=== PATIENT | female | born 1965 | race Caucasian/White ===

== ENCOUNTER 2016-08-25 09:45 | Observation (INO) | payer OTHER ==
[~2016-08-25] VITALS: Ht 162.6 cm; Wt 56.8 kg
--- NOTE | 2016-08-25 10:19 | DIAGNOSTIC IMAGING REPORT ---
PROCEDURE: XR CHEST 1 VIEW INDICATION: CHEST PAIN TECHNIQUE: Portable AP view 10:12 a.m. COMPARISON: None. FINDINGS: Lungs are clear. Heart and mediastinum are normal. Thorax is normal. IMPRESSION: 1. Negative chest.
--- NOTE | 2016-08-25 11:55 | ED NURSING NOTES ---
Clinical Report - Nurses [facility] [address] [place] [address] 08/25/2016 9:49 Patient: ANSELMO PIKE TRIAGE Triage time 09:45. Acuity: LEVEL 3. Chief Complaint: CHEST PAIN and (Chest pressure 6/10 in right upper chest and into her right arm, reproducible, nausaea, mild SOB is resolved. Onset of sx 0645 today.). SEPSIS SCREEN: Sepsis Screen. Negative (no infection suspected/documented). HOMER COMA SCORE: Homer Coma Scale: 15- eyes open spontaneously (4); best verbal response- oriented x 4 (5); best motor response- obeys commands (6). --10:02 Melivn Lynch R.N. 09:52 08/25/16. BP: 106/61 (regular adult cuff) taken on the left arm, while lying. HR: 58. RR: 16. O2 saturation: 98% on room air. Temp: 98.2 F (oral). Pain level now: 04/22. --10:02 Melvin Lynch R.N. Weight: 53.5 kg stated. Height/Length: 64 inches Per Patient. BMI: 20.3. --09:56 Melvin Lynch R.N. Medications Depakote Oral 1500MG, daily. --09:58 Melvin Lynch R.N. Lexapro Oral (Tablet 20 mg) 1 tablet, daily. --09:58 Melvin Lynch R.N. ClonazePAM Oral (Tablet 0.5 mg) 1 tablet, daily. --09:58 Melvin Lynch R.N. Percocet Oral. --09:59 Melvin Lynch R.N. Tramadol HCL Oral (Tablet 50 mg) 2 tablets, 2x a day. --09:59 Melvin Lynch R.N. Allergies No Known Drug Allergy. --09:59 Melvin Lynch R.N. History Arrived by private vehicle. Historian: patient. Accompanied by family. Treatment TRANSPORTATION LEAD: None. SOCIAL HX: Heavy tobacco smoker (cigarette)- less than 1 pack per day. Alcohol use. Patient is a recovering alcoholic. History of drug use: marijuana. (daily). ABUSE ASSESSMENT: No report of abuse. --10:02 Melvin Lynch R.N. PROBLEMS: Pain. Bipolar Disorder. --10:01 Melvin Lynch R.N. Concussion. --10:01 Melvin Lynch R.N. Alcoholic Seizures. --10:01 Melvin Lynch R.N. ADDITIONAL SURGERIES: Ankle ORIF. Spinal fusion L1. Tubal Ligation. --10:01 Melvin Lynch R.N. Interventions ID band on patient. To treatment room. --10:02 Melvin Lynch R.N. NURSING PROGRESS NOTES 10:08/25/2016 Site #1 started via IV in the right wrist with an 20g angiocath using a topical anesthetic, with aseptic technique and good blood return; one attempt. Blood drawn: rainbow set. Labeled in the presence of the patient and sent to the lab. Saline lock flushed with 10 mL saline. --10:[address] [facility] EKG time: (951). EKG was ordered, performed by a tech and shown to the ED physician. --10:10 Naseem Curiel, PAUL Tech1 10:17 08/25/2016 Aspirin PO Tablets 325 mg given. Allergies verified and confirmed 5 rights. --10:17 Ali 09:45 08/25/16. BP: 106/71. HR: 58. RR: 15. O2 saturation: 96%. --10:34 Ali 10:00 08/25/16. BP: 104/51. HR: 59. RR: 16. O2 saturation: 95%. --10:35 Ali 10:15 08/25/16. BP: 98/44. HR: 54. RR: 15. O2 saturation: 96%. --10:35 Ali 12:00 08/25/2016 Nitroglycerin SL Tablets 0.4 mg given. Allergies verified and confirmed 5 rights. (BP 103/49). --12:00 AliM 13:27 08/25/16. BP: 95/55 (regular adult cuff) taken on the left arm, while lying. HR: 50. RR: 15. O2 saturation: 94% on room air. Pain level now: 4/10. --13:50 AliM 11:00 08/25/16. BP: 93/41. HR: 55. RR: 13. O2 saturation: 94%. --13:57 AliM 11:30 08/25/16. BP: 102/49. HR: 55. RR: 13. O2 saturation: 95%. --13:57 AliM 12:00 08/25/16. BP: 95/42. HR: 62. RR: 14. O2 saturation: 95%. --13:58 AliM 12:30 08/25/16. BP: 98/54. HR: 54. RR: 15. O2 saturation: 93%. --13:59 AliM 13:00 08/25/16. BP: 101/49. HR: 51. RR: 14. O2 saturation: 94%. --13:59 AliM. DISPOSITION / DISCHARGE Report was given to a nurse via a phone call. Report included patient's care, treatment, medications, reviewed medication reconcilliation, and condition (including any recent changes or anticipated changes). All questions were answered. Report was acknowledged. (DAVID Suggs). --14:00 Melvin Lynch R.N. 14:01 08/25/2016 Site #[address] upon admission; patent, no pain and no signs of infection or infiltration. Good blood return present. Flushed with 10 mL saline; flushes easily. --14:01 Melvin Lynch R.N. Cardiac rhythm: sinus bradycardia. Departure time: 1410. Condition at departure: stable. Disposition: observation in Acute Care (212). Transported via stretcher by transport team with IV. Patient's personal items include, 1 bag with pt. --14:44 Melvin Lynch R.N. 14:02 08/25/16. BP: 100/38. HR: 50. RR: 20. O2 saturation: 94% on room air. Temp: 98.2 F (oral). Pain level now: 02/22. --14:44 Melvin Lynch R.N. Locked/Released at 08/25/2016 15:03 by Melvin Lynch R.N.
--- NOTE | 2016-08-25 11:55 | ED CLINICAL REPORT ---
Clinical Report - Physicians/Mid Levels [facility] [address] [place] [address] 08/25/2016 9:49 Patient: ANSELMO PIKE Time Seen: 09:56. Arrived- By private vehicle. Historian- patient. HISTORY OF PRESENT ILLNESS Chief Complaint: CHEST PAIN. At its maximum, severity described as 7 / 10. When seen in the E.D., severity described as 3 / 10. Modifying factors. Not worsened by anything. Not relieved by anything. This started today at about 6:45 AM and is still present. It was abrupt in onset and has been constant and waxing/waning. Onset during light activity. It is described as pressure and it is described as located in the right chest area and radiating to the upper back and to the right arm (with tingling in the R arm and hand). The patient has had mild difficulty breathing and nausea. No vomiting or diaphoresis. Similar symptoms previously: None. REVIEW OF SYSTEMS No calf pain, pedal edema, palpitations, abdominal pain or constipation. No diarrhea, vomiting or urinary problems. She has had a mild nonproductive cough (chronically). The patient is a smoker. She has had a stress test done many years ago. All systems otherwise negative, except as recorded above. PAST HISTORY borderline high cholesterol PCP - [facility]. Problems: Alcoholic Seizures. Concussion. Pain. Bipolar Disorder. Additional Surgeries: Ankle ORIF. Spinal fusion L1. Tubal Ligation. Medications: Tramadol HCL Oral (Tablet 50 mg) 2 tablets, 2x a day. Percocet Oral. ClonazePAM Oral (Tablet 0.5 mg) 1 tablet, daily. Lexapro Oral (Tablet 20 mg) 1 tablet, daily. Depakote Oral 1500MG, daily. Allergies: No Known Drug Allergy. SOCIAL HISTORY Current every day heavy tobacco smoker (cigarette)- less than 1 pack per day. Alcohol use. Last drink was 3 years ago. Patient is a recovering alcoholic. History of drug use: marijuana. Is a local resident. FAMILY HISTORY No history of aortic aneurysm or dissection. Hypertension in first-degree relative (mother); heart disease in first-degree relative (mother). ADDITIONAL NOTES The nursing notes have been reviewed. PHYSICAL EXAM Vital Signs: 08/25/2016 09:45 BP: 106/71. HR: 58. RR: 15. O2 saturation: 96%. Have been reviewed. Appearance: Alert. No acute distress. Eyes: Pupils equal, round and reactive to light. ENT: Pharynx normal. Neck: Neck supple. CVS: Normal heart rate and rhythm. Heart sounds normal. Respiratory: No respiratory distress. Breath sounds normal. Abdomen: Soft and nontender. Bowel sounds normal. No organomegaly. No mass. Back: Normal external inspection. No CVA tenderness. Skin: Skin warm and dry. Normal skin color. Normal skin turgor. Extremities: Extremities exhibit normal ROM. No calf tenderness. No lower extremity edema. LABS, X-RAYS, AND EKG EKG: No acute process. Rate: 56. Prior EKG unavailable. The study has been independently viewed by me. Chest X-ray: (IMPRESSION: 1. Negative chest.). The X-rays were interpreted by the radiologist and contemporaneously by me. Laboratory Tests: UA-Culture if indicated: (MICHELE: 08/25/2016 10:25) ( MsgRcvd 08/25/2016 10:51) Final results Test Result Flag Units (Reference) URINE COLOR YELLOW URINE APPEARANCE CLEAR URINE GLUCOSE NEGATIVE (NEGATIVE) URINE BILIRUBIN NEGATIVE (NEGATIVE) URINE KETONE NEGATIVE (NEGATIVE) URINE SPECIFIC GRAVITY 1.010 (1.010-1.030) URINE PH 7.0 (5.0-8.0) URINE PROTEIN NEGATIVE (NEGATIVE) URINE UROBILINOGEN 0.2 EU/dL (0.2-1.0) URINE NITRITE NEGATIVE (NEGATIVE) URINE BLOOD TRACE-INTACT (NEGATIVE) URINE LEUK ESTERASE NEGATIVE (NEGATIVE) URINE RBC 0-1 rbc/hpf (0-1) URINE WBC NONE SEEN wbc/hpf (0-1) URINE EPITHELIAL CELLS 0-1 EPI/hpf (0-5) URINE BACTERIA NONE SEEN (NONE SEEN) URINE COMMENT CULT NOT INDICATED 2+ AMORPHOUSURINE CULTURES ARE SET-UP BASED ON THE FOLLOWING CRITERIA:POSITIVE NITRITEPOSITIVE LEUKOCYTE ESTERASEGREATER THAN 10 WHITE BLOOD CELLSMODERATE (2+) OR GREATER BACTERIA Urine: (MICHELE: 08/25/2016 10:25) ( MsgRcvd 08/25/2016 10:38) Final results Test Result Flag Units (Reference) URINE NEGATIVE CBC w Diff: (MICHELE: 08/25/2016 09:57) ( [facility] 08/25/2016 10:12) Final results Test Result Flag Units (Reference) WHITE BLOOD COUNT 7.7 K/uL (4.5-11.5) RED BLOOD COUNT 3.92 L M/uL (4.00-5.20) HEMOGLOBIN 12.0 gm/dL (12.0-16.0) HEMATOCRIT 35.9 L % (36.0-46.0) MEAN CELL VOLUME 92 fL (80-100) MEAN CORPUSCULAR HGB 31 pg (26-34) MEAN CORPUSCULAR HGB CONC 33 g/dL (31-37) RED CELL DISTRIBUTION WIDTH 14.4 % (11.6-14.8) PLATELET COUNT 232 K/uL (150-400) NEUTROPHIL % 54.4 % (50-75) LYMPH % 33.4 % (25-40) MONO % 7.2 % (3-14) EOSINOPHIL % 4.6 H % (0-4) BASOPHIL % 0.4 % (0-2) PT with INR: (MICHELE: 08/25/2016 09:57) ( [facility] 08[facility]25[facility] 10[facility]26) Final results Test Result Flag Units (Reference) INR 0.9 (0.8-1.2) Low Intensity Therapy: INR 1.5-2.0 PT range 18.5-23.1Mod.Intensity Therapy: INR 2.0-3.0 PT range 23.1-31.5High Intensity Therapy: INR 2.5-3.5 PT range 27.4-35.5High Intensity Therapy 2: INR 3.0-4.0 PT range 31.5-39.3 APTT 28 SECONDS (24-34) D-DIMER QUANTITATIVE 0.27 ug/mLFEU (0.27-0.52) The primary value of this quantitative assay relates toits negative predictive value (i.e. exclusion) of pulmonaryembolism/deep vein thrombosis/DIC.Elevated levels of d-dimer may also occur with:, age, cancer, inflammation, liver disease,post-op, infection, hematoma, coronary disease, peripheralarteriopathy, bleeding disorders and thrombolytic treatment.Results should be correlated with other clinical andradiological data.Testing Methodology: Latex Immunoassay Urine Drug Screen: (MICHELE: 08/25/2016 10:25) ( [facility] 08/25/2016 11:44) Final results Test Result Flag Units (Reference) AMPHETAMINE/METHAMPHETAMINE NEGATIVE (NEGATIVE) BARBITURATE NEGATIVE (NEGATIVE) BENZODIAZEPINE NEGATIVE (NEGATIVE) CANNABINOID POSITIVE H (NEGATIVE) COCAINE NEGATIVE (NEGATIVE) ECSTASY NEGATIVE (NEGATIVE) METHADONE NEGATIVE (NEGATIVE) OPIATE NEGATIVE (NEGATIVE) The urine drug screen is a qualitative screening test fordrug overdose and abuse. All screen results should beconsidered as presumptive.Drugs screened for are as follows:BenzodiazepinesCocaineAmphetamines/MetamphetaminesTHC (Tetrahydrocannabinol)OpiatesBarbituratesEcstasyMethadonePositive results are unconfirmed. For confirmation, notifythe lab for the specimen to be sent to the reference lab.All confirmations must be performed by a differentmethodology.The ingestion of natural herbal and plant productscontaining Ephedra/Ephedra metabolites can produce in urineone or more substances capable of cross reacting withamphetamine/methamphetamine immunoassays. These testsprovide a preliminary result only. A more specificalternative chemical method must be used to obtain aconfirmed analytical result. Valproic Acid (Depakene): (MICHELE: 08/25/2016 10:57) ( [facility] 08/25/2016 11:42) Final results Test Result Flag Units (Reference) VALPROIC ACID (DEPAKENE) 68.5 ug/mL (50.0-150.0) BNP: (MICHELE: 08/25/2016 09:57) ( [facility] 08/25/2016 10:45) Final results Test Result Flag Units (Reference) B-TYPE NATRIURETIC PEPTIDE 44.3 pg/ml (5-100) CMP: (MICHELE: 08/25/2016 09:57) ( MsgRcvd 08/25/2016 10:31) Final results Test Result Flag Units (Reference) GLUCOSE 95 mg/dL (70-110) BUN 14 mg/dL (7-18) CREATININE 0.6 mg/dL (0.6-1.3) Estimated GFR >60 mL/min Estimated GFR- >60 mL/min Note: Persistent reduction over 3 months in eGFR<60 mL/min/1.73 m2 defines CKD. Patients with eGFR values>=60 mL/min/1.73 m2 may also have CKD if evidence ofpersistent proteinuria. Additional information may be foundat www.kidney.org. SODIUM 132 L mmol/L (136-145) POTASSIUM 4.0 mmol/L (3.5-5.1) CHLORIDE 101 mmol/L (98-107) CARBON DIOXIDE 31 mmol/L (21-32) CALCIUM 8.1 L mg/dL (8.5-10.1) TOTAL PROTEIN 5.9 L g/dL (6.4-8.2) ALBUMIN 3.3 g/dL (3.3-5.0) BILIRUBIN, TOTAL 0.2 mg/dL (0.0-1.0) ALKALINE PHOSPHATASE 67 U/L (46-116) AST (SGOT) 18 U/L (15-37) ALT (SGPT) 17 U/L (12-78) LIPASE 92 U/L (73-393) AMYLASE 73 U/L (25-115) CPK 81 U/L (24-260) TROPONIN I <0.05 ng/mL (0.00-1.5) TROPONIN REFERENCE RANGE:<0.1 NEGATIVE0.1-1.5 INDETERMINANT>1.5 POSITIVE . PROGRESS AND PROCEDURES Course of Care: Patient is stable. Discussed case with hospitalist, (Jose). Reviewed test results and need for additional work-up. Agreed upon treatment plan and decision to place in observation. Patient/family counseled. Old medical records ordered. Old records unavailable. Disposition: Admitted. Observation. CLINICAL IMPRESSION Chest pain. (Electronically signed by Simon Perez MD 08/25/2016 17:43)
--- NOTE | 2016-08-25 11:55 | ED ORDER SUMMARY ---
..... Patient: ANSELMO PIKE OrderSheet [facility] VisitID: [id number] [address] [place] [address] 50y, F Registration Date/Time: 08/25/2016 ORDER SHEET Weight: 53.5 kg (stated) Allergies: No Known Drug Allergy GENERAL ORDERS: Chest 1V Urgent (:08/25/2016 Conor JAEGER) (Ack 10:01 PWeiler ER Tech1) (10:10 PWeiler ER Tech1) Finish Cleaner (Continuous) (08/25/2016 Conor JAEGER) (10:05 JSimbeck R.N.) CBC w Diff Urgent (08/25/2016 Conor JAEGER) (Ack 10:01 PWeiler ER Tech1) (10:04 PWeiler ER Tech1) (10:06 JSimbeck R.N.) CMP Urgent (08/25/2016 Conor JAEGER) (Ack 10:01 Yuniorler ER Tech1) (10:04 PWeiler ER Tech1) (10:06 JSimbeck R.N.) UA-Culture if indicated Urgent (08/25/2016 Conor JAEGER) (Ack 10:01 MAGDAeihermilo ER Tech1) (11:55 JSimbeck R.N.) PT with INR Urgent (08/25/2016 Conor JAEGER) (Ack 10:01 PWeihermilo ER Tech1) (10:04 PWeiler ER Tech1) (10:06 JSimbeck R.N.) PTT Urgent (08/25/2016 Conor JAEGER) (Ack 10:01 Jh ER Tech1) (10:04 PWeiler ER Tech1) (10:06 JSimbeck R.N.) D-Dimer Urgent (08/25/2016 Conor JAEGER) (Ack 10:01 PWeihermilo ER Tech1) (10:04 PWeiler ER Tech1) (10:06 JSimbeck R.N.) Amylase Urgent (08/25/2016 Conor JAEGER) (Ack 10:01 MAGDAeihermilo ER Tech1) (10:04 PWeiler ER Tech1) (10:06 JSimbeck R.N.) Lipase Urgent (09:58 08/25/2016 Conor JAEGER) (Ack 10:01 PWeiler ER Tech1) (10:04 PWeiler ER Tech1) (10:06 JSimbeck R.N.) CPK Urgent (09:58 08/25/2016 Conor JAEGER) (Ack 10:01 MAGDAeihermilo ER Tech1) (10:04 PWeiler ER Tech1) (10:06 JSimbeck R.N.) Troponin-I Urgent (09:58 08/25/2016 Conor JAEGER) (Ack 10:01 MAGDAeihermilo ER Tech1) (10:04 PWeiler ER Tech1) (10:06 JSimbeck R.N.) Urine Urgent (:08/25/2016 Conor JAEGER) (Ack 10:01 Jh ER Tech1) (11:55 JSimbeck R.N.) BNP Urgent (09:08/25/2016 Conor JAEGER) (Ack 10:01 MAGDAeihermilo ER Tech1) (10:04 MAGDAeiler ER Tech1) (10:06 JSimbeck R.N.) Oxygen (2 L/min) (NC) (:58 08/25/2016 Conor JAEGER) (10:05 JSimbeck R.N.) Pulse oximeter (:08/25/2016 Conor JAEGER) (10:06 JSimbeck R.N.) EKG - ER Stat (:08/25/2016 Conor JAEGER) (Ack 10:01 Jh ER Tech1) (10:01 MAGDAeiler ER Tech1) Valproic Acid (Depakene) Urgent (11:16 08/25/2016 Conor JAEGER) (Ack 11:31 Jh ER Tech1) (11:42 PWgissel ER Tech1) Urine Drug Screen Urgent (11:16 08/25/2016 Conor JAEGER) (Ack 11:31 Jh MILLER Tech1) (11:55 JSimbeck R.N.) MEDICATION ORDERS: Aspirin PO 325 mg (NOW) (09:58 08/25/2016 Conor JAEGER) (10:17 AMcKenna) NitroGLYCERIN SL 0.4 mg (NOW, x3 PRN Chest Pain) (11:17 08/25/2016 Conor JAEGER) (12:00 [facility]) IV FLUIDS: IV Saline Lock (09:58 08/25/2016 Conor JAEGER) (10:13 [facility]) ORDER SHEET NOTES: [Electronically signed by Melvin Lynch R.N. (15:02 08/25/2016)] [Electronically signed by Simon Perez MD (17:43 08/25/2016)] [Electronically locked/signed by Melvin Lynch R.N. (15:02 08/25/2016)]
--- NOTE | 2016-08-25 11:55 | ED ORDER SUMMARY ---
..... Patient: ANSELMO PIKE OrderSheet [facility] VisitID: [id number] [address] [place] [address] 50y, F Registration Date/Time: 08/25/2016 ORDER SHEET Weight: 53.5 kg (stated) Allergies: No Known Drug Allergy GENERAL ORDERS: Chest 1V Urgent (:08/25/2016 Conor JAEGER) (Ack 10:01 PWeiler ER Tech1) (10:10 PWeiler ER Tech1) Medical Device Assembler (Continuous) (08/25/2016 Conor JAEGER) (10:05 JSimbeck R.N.) CBC w Diff Urgent (08/25/2016 Conor JAEGER) (Ack 10:01 PWeiler ER Tech1) (10:04 PWeiler ER Tech1) (10:06 JSimbeck R.N.) CMP Urgent (08/25/2016 Conor JAEGER) (Ack 10:01 Yuniorler ER Tech1) (10:04 PWeiler ER Tech1) (10:06 JSimbeck R.N.) UA-Culture if indicated Urgent (08/25/2016 Conor JAEGER) (Ack 10:01 MAGDAeihermilo ER Tech1) (11:55 JSimbeck R.N.) PT with INR Urgent (08/25/2016 Conor JAEGER) (Ack 10:01 PWeihermilo ER Tech1) (10:04 PWeiler ER Tech1) (10:06 JSimbeck R.N.) PTT Urgent (08/25/2016 Conor JAEGER) (Ack 10:01 Jh ER Tech1) (10:04 PWeiler ER Tech1) (10:06 JSimbeck R.N.) D-Dimer Urgent (08/25/2016 Conor JAEGER) (Ack 10:01 PWeihermilo ER Tech1) (10:04 PWeiler ER Tech1) (10:06 JSimbeck R.N.) Amylase Urgent (08/25/2016 Conor JAEGER) (Ack 10:01 MAGDAeihermilo ER Tech1) (10:04 PWeiler ER Tech1) (10:06 JSimbeck R.N.) Lipase Urgent (09:58 08/25/2016 Conor JAEGER) (Ack 10:01 PWeiler ER Tech1) (10:04 PWeiler ER Tech1) (10:06 JSimbeck R.N.) CPK Urgent (09:58 08/25/2016 Conor JAEGER) (Ack 10:01 MAGADeihermilo ER Tech1) (10:04 PWeiler ER Tech1) (10:06 JSimbeck R.N.) Troponin-I Urgent (09:58 08/25/2016 Conor JAEGER) (Ack 10:01 MAGDAeihermilo ER Tech1) (10:04 PWeiler ER Tech1) (10:06 JSimbeck R.N.) Urine Urgent (:08/25/2016 Conor JAEGER) (Ack 10:01 Jh ER Tech1) (11:55 JSimbeck R.N.) BNP Urgent (09:08/25/2016 Conor JAEGER) (Ack 10:01 MAGDAeihermilo ER Tech1) (10:04 MAGDAeiler ER Tech1) (10:06 JSimbeck R.N.) Oxygen (2 L/min) (NC) (:58 08/25/2016 Conor JAEGER) (10:05 JSimbeck R.N.) Pulse oximeter (:08/25/2016 Conor JAEGER) (10:06 JSimbeck R.N.) EKG - ER Stat (:08/25/2016 Conor JAEGER) (Ack 10:01 Jh ER Tech1) (10:01 MAGDAeiler ER Tech1) Valproic Acid (Depakene) Urgent (11:16 08/25/2016 Conor JAEGER) (Ack 11:31 Jh ER Tech1) (11:42 PWgissel ER Tech1) Urine Drug Screen Urgent (11:16 08/25/2016 Conor JAEGER) (Ack 11:31 Jh MILLER Tech1) (11:55 JSimbeck R.N.) MEDICATION ORDERS: Aspirin PO 325 mg (NOW) (09:58 08/25/2016 Conor JAEGER) (10:17 AMcKenna) NitroGLYCERIN SL 0.4 mg (NOW, x3 PRN Chest Pain) (11:17 08/25/2016 Conor JAEGER) (12:00 [facility]) IV FLUIDS: IV Saline Lock (09:58 08/25/2016 Conor JAEGER) (10:13 [facility]) ORDER SHEET NOTES: [Electronically signed by Melvin Lynch R.N. (15:02 08/25/2016)] [Electronically signed by Simon Perez MD (17:43 08/25/2016)] [Electronically locked/signed by Melvin Lynch R.N. (15:02 08/25/2016)]
--- NOTE | 2016-08-25 11:55 | ED NURSING NOTES ---
Clinical Report - Nurses [facility] [address] [place] [address] 08/25/2016 9:49 Patient: ANSELMO PIKE TRIAGE Triage time 09:45. Acuity: LEVEL 3. Chief Complaint: CHEST PAIN and (Chest pressure 6/10 in right upper chest and into her right arm, reproducible, nausaea, mild SOB is resolved. Onset of sx 0645 today.). SEPSIS SCREEN: Sepsis Screen. Negative (no infection suspected/documented). HOMER COMA SCORE: Homer Coma Scale: 15- eyes open spontaneously (4); best verbal response- oriented x 4 (5); best motor response- obeys commands (6). --10:02 Melvin Lynch R.N. 09:52 08/25/16. BP: 106/61 (regular adult cuff) taken on the left arm, while lying. HR: 58. RR: 16. O2 saturation: 98% on room air. Temp: 98.2 F (oral). Pain level now: 04/22. --10:02 Melvin Lynch R.N. Weight: 53.5 kg stated. Height/Length: 64 inches Per Patient. BMI: 20.3. --09:56 Melvin Lynch R.N. Medications Depakote Oral 1500MG, daily. --09:58 Melvin Lynch R.N. Lexapro Oral (Tablet 20 mg) 1 tablet, daily. --09:58 Melvin Lynch R.N. ClonazePAM Oral (Tablet 0.5 mg) 1 tablet, daily. --09:58 Melvin Lynch R.N. Percocet Oral. --09:59 Melvin Lynch R.N. Tramadol HCL Oral (Tablet 50 mg) 2 tablets, 2x a day. --09:59 Melvin Lynch R.N. Allergies No Known Drug Allergy. --09:59 Melvin Lynch R.N. History Arrived by private vehicle. Historian: patient. Accompanied by family. 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 SOCIAL HX: Heavy tobacco smoker (cigarette)- less than 1 pack per day. Alcohol use. Patient is a recovering alcoholic. History of drug use: marijuana. (daily). ABUSE ASSESSMENT: No report of abuse. --10:02 Melvin Lynch R.N. PROBLEMS: Pain. Bipolar Disorder. --10:01 Melvin Lynch R.N. Concussion. --10:01 Melvin Lynch R.N. Alcoholic Seizures. --10:01 Melvin Lynch R.N. ADDITIONAL SURGERIES: Ankle ORIF. Spinal fusion L1. Tubal Ligation. --10:01 Melvin Lynch R.N. Interventions ID band on patient. To treatment room. --10:02 Melvin Lynch R.N. NURSING PROGRESS NOTES 10:08/25/2016 Site #1 started via IV in the right wrist with an 20g angiocath using a topical anesthetic, with aseptic technique and good blood return; one attempt. Blood drawn: rainbow set. Labeled in the presence of the patient and sent to the lab. Saline lock flushed with 10 mL saline. --10:08 [facility] EKG time: (951). EKG was ordered, performed by a tech and shown to the ED physician. --10:10 Naseem Curiel, PAUL Tech1 10:17 08/25/2016 Aspirin PO Tablets 325 mg given. Allergies verified and confirmed 5 rights. --10:17 Ali 09:45 08/25/16. BP: 106/71. HR: 58. RR: 15. O2 saturation: 96%. --10:34 Ali 10:00 08/25/16. BP: 104/51. HR: 59. RR: 16. O2 saturation: 95%. --10:35 Ali 10:15 08/25/16. BP: 98/44. HR: 54. RR: 15. O2 saturation: 96%. --10:35 Ali 12:00 08/25/2016 Nitroglycerin SL Tablets 0.4 mg given. Allergies verified and confirmed 5 rights. (BP 103/49). --12:00 AliM 13:27 08/25/16. BP: 95/55 (regular adult cuff) taken on the left arm, while lying. HR: 50. RR: 15. O2 saturation: 94% on room air. Pain level now: 4/10. --13:50 AliM 11:00 08/25/16. BP: 93/41. HR: 55. RR: 13. O2 saturation: 94%. --13:57 AliM 11:30 08/25/16. BP: 102/49. HR: 55. RR: 13. O2 saturation: 95%. --13:57 AliM 12:00 08/25/16. BP: 95/42. HR: 62. RR: 14. O2 saturation: 95%. --13:58 AliM 12:30 08/25/16. BP: 98/54. HR: 54. RR: 15. O2 saturation: 93%. --13:59 AliM 13:00 08/25/16. BP: 101/49. HR: 51. RR: 14. O2 saturation: 94%. --13:59 AliM. DISPOSITION / DISCHARGE Report was given to a nurse via a phone call. Report included patient's care, treatment, medications, reviewed medication reconcilliation, and condition (including any recent changes or anticipated changes). All questions were answered. Report was acknowledged. (DAVID Suggs). --14:00 Melvin Lynch R.N. 14:01 08/25/2016 Site #[address] upon admission; patent, no pain and no signs of infection or infiltration. Good blood return present. Flushed with 10 mL saline; flushes easily. --14:01 Melvin Lynch R.N. Cardiac rhythm: sinus bradycardia. Departure time: 1410. Condition at departure: stable. Disposition: observation in Acute Care (212). Transported via stretcher by transport team with IV. Patient's personal items include, 1 bag with pt. --14:44 Melvin Lynch R.N. 14:02 08/25/16. BP: 100/38. HR: 50. RR: 20. O2 saturation: 94% on room air. Temp: 98.2 F (oral). Pain level now: 02/22. --14:44 Melvin Lynch R.N. Locked/Released at 08/25/2016 15:03 by Melvin Lynch R.N.
--- NOTE | 2016-08-25 13:29 | Progress Note ---
Subjective General Admission History and Physical Examination Patient Name: Jacque Sanabria Admission Date: 08/25/2016 Primary Care Provider: Presley Henning Attending Physician: Roman Garcia M.D. Admitting Physician: Roman Garcia M.D. Code Status: Full code Room: SUBJECTIVE Historian: Patient Reliability: Good Chief Complaint: Chest pain Shortness of breath History of Present Illness: The patient is a 50-year-old white female with a history of hyperlipidemia, bipolar, presented to the [facility] emergency department with right anterior chest pain with radiation to the upper back and to the right arm. Also complaining of tingling in the right arm and hand. Patient reported the severity of pain at 7 out of 10 on onset. When reaching the emergency department. Patient reported it as a 3 out of 10. No modifying factor noted. Patient states the onset of pain was (6:[address] to work. Patient stated that the onset was abrupt and was progressive during activity. Patient also had reports of nausea and feeling of warmth. Patient also reported a shortness of breath during the episode of chest pain. Patient reports to the [facility] later that morning. By the time she reached the ED, she was admitted a pain level. 04/22. Patient was seen with an EKG with normal sinus rhythm. Bone bradycardia with heart rate of 50. Initial labs were negative: troponin or CK. All other labs are negative. Patient had a prior history of cardiac stress test performed more than 6 years ago. [place]. This test was found to be negative. She has a family history of heart disease. Patient reports that her mother in her mid 40s, from heart disease. Patient states that her mother when her heart stop. Patient has been feeling well over the last 2 weeks. Patient has not reported of any chest pain or any other symptoms of shortness of breath. Patient does report of a cough but this is related primarily to her cigarette smoking. Patient has a prolonged 35+ years cigarette smoking history. Patient discontinued all alcohol forms of alcohol consumption, July 14, 2013. PAST MEDICAL HISTORY Illnesses: 1. Hyperlipidemia. 2. Alcohol abuse, stopped all drinking July 14, 2013. 3. Bipolar depression. 4. Osteoarthritis, chronic lower back pain. Allergies: 1. Patient reports that she has an allergy to alcohol. Medications: 1. Depakote 1500 mg by mouth at bedtime. 2. Lexapro 20 mg daily. 3. Klonopin 1/2 mg daily at noon. 4. Percocet 5/325 mg by mouth 3 times a day. 5. Tramadol 50-100 mg twice per day. Surgery: 1. Surgery to the lower back 2. Ankle surgery for repair 3. Tubal ligation Injuries: 1. Lower back injuries 2. Ankle and leg injuries Hospitalizations: 1. 2 hospitalizations. Patient reports a recent hospitalization for depression, [place]. 2. Hospitalization for overdose. There was hospitalizations included the use surgical procedures performed above. FAMILY HISTORY Parents: 1. Father, father is living., Knee joint pain, otherwise healthy., 2. Mother, in her mid 40s from heart disease. Children: 1. 3 children SOCIAL HISTORY 1. Marital Status: 2. Hinduism: Believes Go. 3. Education: Unknown 4. Employment History: Currently working for an [employer]. 5. Occupational health exposures: unknown HABITS 1. Tobacco: Three quarters of pack per day. Smoking since age of 14 2. Drugs: None. No IV drug use 3. Alcohol: Sobriety, July 14 4. Caffeine: unknown HEALTH SUPERVISION Item/Test See notes from our clinic. IMMUNIZATIONS: 1. Pneumococcal: none 2. Influenza: none 3. Tetanus: Within last 10 years ADVANCED DIRECTIVES: 1. Living well: None 2. POLST: None 3. Code Status: Full code 4. Durable Power Delivery Driver/Customer Service Health care: None have been written out. Person to call would be 5. Donor card: Unknown REVIEW OF SYSTEMS Remarkable for those things stated in the history of present illness and past medical history. Constitutional Denies: Chills, Sweats, Weakness. Eyes Denies: Vision Change. Respiratory Other (shortness of breath and sympto). Denies: Wheezing. Cardiovascular Denies: Palpitations (anterior chest pain). Gastrointestinal Denies: Abdominal Pain, Diarrhea, Constipation. Musculoskeletal Arm Pain. Neurological Denies: Numbness, Incoordination. Physical Exam Vital Signs / I&Os 106/71. HR: 50-58. RR: 15. O2 saturation: 96%. General Appearance Oriented X3, Cooperative, No acute distress HEENT Atraumatic Lungs Clear to auscultation Cardiovascular Regular rate and rhythm, No murmurs, gallops, rubs Abdomen Soft, No tenderness Extremities No cyanosis, No clubbing, No edema Neurological Normal tone, Sensation intact LAB Results Laboratory Tests 08/25 08/25 08/25 0957 0957 1025 Chemistry Plasma Sodium (136 - 145 mmol/L) 132 Plasma Potassium (3.5 - 5.1 mmol/L) 4.0 Plasma Chloride (98 - 107 mmol/L) 101 CO2 (Enzymatic) (21 - 32 mmol/L) 31 BUN (7 - 18 mg/dL) 14 Creatinine (0.6 - 1.3 mg/dL) 0.6 Est GFR ( Amer) (mL/min) >60 Est GFR (Non-Af Amer) (mL/min) >60 Glucose (70 - 110 mg/dL) 95 Plasma Calcium (8.5 - 10.1 mg/dL) 8.1 Total Bilirubin (0.0 - 1.0 mg/dL) 0.2 AST (15 - 37 U/L) 18 ALT (12 - 78 U/L) 17 Alkaline Phosphatase (46 - 116 U/L) 67 Creatine Kinase (24 - 260 U/L) 81 Troponin (0.00 - 1.5 ng/mL) <0.05 B-Natriuretic Peptide (5 - 100 pg/ml) 44.3 Total Protein (6.4 - 8.2 g/dL) 5.9 Albumin (3.3 - 5.0 g/dL) 3.3 Amylase (25 - 115 U/L) 73 Lipase (73 - 393 U/L) 92 Coagulation INR (0.8 - 1.2) 0.9 APTT (24 - 34 SECONDS) 28 D-Dimer, Quantitative (0.27 - 0.52 ug/mLFEU) 0.27 Hematology WBC (4.5 - 11.5 K/uL) 7.7 RBC (4.00 - 5.20 M/uL) 3.92 Hgb (12.0 - 16.0 gm/dL) 12.0 Hct (36.0 - 46.0 %) 35.9 MCV (80 - 100 fL) 92 MCH (26 - 34 pg) 31 RDW (11.6 - 14.8 %) 14.4 Neut % (Auto) (50 - 75 %) 54.4 Lymph % (Auto) (25 - 40 %) 33.4 [place] % (Auto) (3 - 14 %) 7.2 Eos % (Auto) (0 - 4 %) 4.6 Baso % (Auto) (0 - 2 %) 0.4 Plt Count, EDTA (150 - 400 K/uL) 232 PUBS MCHC (31 - 37 g/dL) 33 Toxicology Urine Opiates Screen (NEGATIVE) NEGATIVE Urine Methadone Screen (NEGATIVE) NEGATIVE Ur Barbiturates Screen (NEGATIVE) NEGATIVE U Amphetamin/Meth Scrn (NEGATIVE) NEGATIVE MDMA (Ecstasy) Screen (NEGATIVE) NEGATIVE U Benzodiazepines Scrn (NEGATIVE) NEGATIVE Urine Cocaine Screen (NEGATIVE) NEGATIVE U Cannabinoids Screen (NEGATIVE) POSITIVE Urines Urine Color YELLOW Urine Appearance CLEAR Urine pH (5.0 - 8.0) 7.0 Ur Specific [place] (1.010 - 1.030) 1.010 Urine Protein (NEGATIVE) NEGATIVE Urine Ketones (NEGATIVE) NEGATIVE Urine Blood (NEGATIVE) TRACE-INTACT Urine Nitrite (NEGATIVE) NEGATIVE Urine Bilirubin (NEGATIVE) NEGATIVE Urine Urobilinogen (0.2 - 1.0 EU/dL) 0.2 Ur Leukocyte Esterase (NEGATIVE) NEGATIVE Urine RBC (0 - 1 rbc/hpf) 0-1 Urine WBC (0 - 1 wbc/hpf) NONE SEEN Ur Epithelial Cells (0 - 5 EPI/hpf) 0-1 Urine Bacteria (NONE SEEN) NONE SEEN Urine Glucose (NEGATIVE) NEGATIVE Urine Comment CULT NOT INDICATED 08/25 08/25 1025 1057 Toxicology Valproic Acid (50.0 - 150.0 ug/mL) 68.5 Urines Urine Test NEGATIVE Imaging LABS, X-RAYS, AND EKG EKG: No acute process. Rate: 56. Prior EKG unavailable. Chest X-ray: 1. Negative chest.). The X-rays were interpreted by the radiologist and Assessment and Plan Problem List 1. Chest pain Plan This 50-year-old female with history of hyperlipidemia, family history of heart disease. Seen more than 6 ago years ago.'s for a stress test that was negative. Today with abrupt onset of anterior chest pain. Rule out with every 8 hours troponins. Telemetry Cardiac diet. Attempt to maintain bed rest. Light fluid hydration. Pain control when needed. If ruled out, then plan on stress test in a.m.. This includes a Lexiscan nuclear stress test. Continue home medication include the psychotropic, pain control and anxiolytic 2. Chest pain, rule out acute myocardial infarction Plan ACS rule in or out Cardiac enzyme panel start on nitrobid and asa repeat ekg cardiac stress testing. bed rest cardiac diet. 3. HLD (hyperlipidemia) Plan repeat lipid panel during the hospitalization 4. FH: heart disease Plan Complicating factor to the anterior chest pain. Current status: Fair Poor Anticipated discharge date: 24 hours Anticipated discharge placement: home Patient care time: Time spent in chart review, patient interview, physical exam, CPOE, and care documentation: 70 minutes Visit to patient today: 2 Complexity of care: moderate E&M Codes Rounding: Obsv-Comp/High/27123 repeat lipid panel during the hospitalization 4. FH: heart disease Plan Complicating factor to the anterior chest pain. Current status: Fair Poor Anticipated discharge date: 24 hours Anticipated discharge placement: home Patient care time: Time spent in chart review, patient interview, physical exam, CPOE, and care documentation: 70 minutes Visit to patient today: 2 Complexity of care: moderate E&M Codes Rounding: Obsv-Comp/High/[id number]
--- NOTE | 2016-08-25 13:49 | Progress Note ---
Subjective General ADVANCED CARE PLAN History of Present Illness 50-year-old white female with a history of hyperlipidemia, bipolar, presented to the [facility] emergency department with right anterior chest pain with radiation to the upper back and to the right arm. Also complaining of tingling in the right arm and hand. Patient reported the severity of pain at 7 out of 10 on onset. When reaching the emergency department. Patient was admitted for ACS through hospitalist services. A discussion was undertaken with the patient regarding previous advance care arrangements/decisions. The following advanced directives were noted by the patient and discussed with me at the time of admission. ADVANCED DIRECTIVES: 1. Living well: None 2. POLST: None 3. Code Status: Full code 4. Durable Power Judicial Assistant Health care: None have been written out. Person to call would be 5. Donor card: Unknown The patient has expressed interest in pursuing all forms of resuscitation at this time. She has opted to pursue intubation/mechanical ventilation, CPR, electrical cardioversion, or life-sustaining efforts involving drugs at the time of cardiopulmonary arrest. The patient does not have paperwork or advanced directives and hand. The patient's wishes were documented in the chart and orders regarding the patient's wishes entered into the [employer] CPOE system. The "Advance Care Plan Document" was not distributed to patient to discuss with her family. Greater than 16 minutes was spent in performing the above tasks and documentation of the patient's advanced care plan.
--- NOTE | 2016-08-25 13:49 | Progress Note ---
Subjective General ADVANCED CARE PLAN History of Present Illness 50-year-old white female with a history of hyperlipidemia, bipolar, presented to the [facility] emergency department with right anterior chest pain with radiation to the upper back and to the right arm. Also complaining of tingling in the right arm and hand. Patient reported the severity of pain at 7 out of 10 on onset. When reaching the emergency department. Patient was admitted for ACS through hospitalist services. A discussion was undertaken with the patient regarding previous advance care arrangements/decisions. The following advanced directives were noted by the patient and discussed with me at the time of admission. ADVANCED DIRECTIVES: 1. Living well: None 2. POLST: None 3. Code Status: Full code 4. Durable Power Mixing Tumbler Operator Health care: None have been written out. Person to call would be 5. Donor card: Unknown The patient has expressed interest in pursuing all forms of resuscitation at this time. She has opted to pursue intubation/mechanical ventilation, CPR, electrical cardioversion, or life-sustaining efforts involving drugs at the time of cardiopulmonary arrest. The patient does not have paperwork or advanced directives and hand. The patient's wishes were documented in the chart and orders regarding the patient's wishes entered into the [employer] CPOE system. The "Advance Care Plan Document" was not distributed to patient to discuss with her family. Greater than 16 minutes was spent in performing the above tasks and documentation of the patient's advanced care plan.
--- NOTE | 2016-08-25 14:30 | NUR ---
RECEIVED PT FROM ED, AWAKE, ALERT, ORIENTED, COHERENT, COOPERATIVE. V/S TAKEN AND RECORDED. ASSESSMENT DONE. PT COMPLAINT OF CHEST PAIN, DULL PAIN, PRESSURE. AND BACK PAIN. PAIN MEDICATION GIVEN. SANDWHICH, ICE WATER GIVEN, TOLERATED WELL. THEN DUE MEDS GIVEN. NEEDS ATTENDED.
[2016-08-25 14:35] VITALS: BP 111/60
--- NOTE | 2016-08-25 17:43 | ED DISCHARGE INSTRUCTIONS ---
Patient: ANSELMO PIKE General Instructions [facility] VisitID: [id number] [address] [place] [address] 50y, F Registration Date/Time: 08/25/2016 Chest pain. (Electronically signed by Simon Perez MD 08/25/2016 17:43)
--- NOTE | 2016-08-25 17:43 | ED MAR SUMMARY ---
..... Medication Administration Record [facility] [address] [place] [address] Patient: ANSELMO PIKE Visit ID: [id number] 50y, F Weight: 53.5 kg Height/Length: 64 in BMI: 20.3 ALLERGIES: No Known Drug Allergy Given 10:17 08/25/2016 AliM, Medication Administered: ASPIRIN [PO], Dose: 325 mg Tablets PO. Medication Ordered: Aspirin PO 325 mg (NOW). Given 12:00 08/25/2016 AliM, Medication Administered: NITROGLYCERIN [SL], Dose: 0.4 mg Tablets SL. Medication Ordered: NitroGLYCERIN SL 0.4 mg (NOW, x3 PRN Chest Pain).
--- NOTE | 2016-08-25 17:43 | ED MED RECONCILIATION SUMMARY ---
Patient: ANSELMO PIKE Medication Reconciliation Report [facility] VisitID: [id number] [address] [place] [address] 50y, F Registration Date/Time: 08/25/2016 Weight: 53.5 kg Height/Length: 64 in. BMI: 20.3 ALLERGIES: No Known Drug Allergy The patient's Home Medications are listed below: THE FOLLOWING MEDICATIONS NEED TO BE RECONCILED: ClonazePAM Oral (0.5 mg) 1 tablet, daily Depakote Oral 1500MG, daily Lexapro Oral (20 mg) 1 tablet, daily Percocet Oral Tramadol HCL Oral (50 mg) 2 tablets, 2x a day The source(s) of the original Home Medication information: Not obtained. The following Medications were given to the patient in the Emergency Department: Aspirin [PO] PO 325 mg, administered: 08/25/2016 10:17:00 AM Nitroglycerin [SL] SL 0.4 mg, administered: 08/25/2016 12:00:00 PM The following Medications were prescribed to the patient: None.
--- NOTE | 2016-08-25 17:43 | ED MED RECONCILIATION SUMMARY ---
Patient: ANSELMO PIKE Medication Reconciliation Report [facility] VisitID: [id number] [address] [place] [address] 50y, F Registration Date/Time: 08/25/2016 Weight: 53.5 kg Height/Length: 64 in. BMI: 20.3 ALLERGIES: No Known Drug Allergy The patient's Home Medications are listed below: THE FOLLOWING MEDICATIONS NEED TO BE RECONCILED: ClonazePAM Oral (0.5 mg) 1 tablet, daily Depakote Oral 1500MG, daily Lexapro Oral (20 mg) 1 tablet, daily Percocet Oral Tramadol HCL Oral (50 mg) 2 tablets, 2x a day The source(s) of the original Home Medication information: Not obtained. The following Medications were given to the patient in the Emergency Department: Aspirin [PO] PO 325 mg, administered: 08/25/2016 10:17:00 AM Nitroglycerin [SL] SL 0.4 mg, administered: 08/25/2016 12:00:00 PM The following Medications were prescribed to the patient: None.
--- NOTE | 2016-08-25 17:43 | ED DISCHARGE INSTRUCTIONS ---
Patient: ANSELMO PIKE General Instructions [facility] VisitID: [id number] [address] [place] [address] 50y, F Registration Date/Time: 08/25/2016 Chest pain. (Electronically signed by Simon Perez MD 08/25/2016 17:43)
--- NOTE | 2016-08-25 17:43 | ED MAR SUMMARY ---
..... Medication Administration Record [facility] [address] [place] [address] Patient: ANSELMO PIKE Visit ID: [id number] 50y, F Weight: 53.5 kg Height/Length: 64 in BMI: 20.3 ALLERGIES: No Known Drug Allergy Given 10:17 08/25/2016 AliM, Medication Administered: ASPIRIN [PO], Dose: 325 mg Tablets PO. Medication Ordered: Aspirin PO 325 mg (NOW). Given 12:00 08/25/2016 AliM, Medication Administered: NITROGLYCERIN [SL], Dose: 0.4 mg Tablets SL. Medication Ordered: NitroGLYCERIN SL 0.4 mg (NOW, x3 PRN Chest Pain).
[2016-08-25 18:21] VITALS: BP 105/53
--- NOTE | 2016-08-25 18:40 | NUR ---
PT DENIES CP, OR ANY PAIN OTHER THAN HEADACHE FROM NITRGLYCERIN. WANTING TO LEAVE AND SMOKE SO THIS RN EDUCATED AMA, HEALTH REASONS NOT TO SMOKE. DAUGHTER IN ROOM EARLY IN SHIFT AND NOW VISITING. PT WANTS TO HAVE DOOR CLOSED BUT THIS RN ASKED THAT CURTAIN NOT BLOCK VIEW TO ENSURE PROPER CARE. EDUCATED WHAT STRESS TEST IS AND PT IS CONCERNED LUNGS CAN HANDLE EXERCISE. OXYGEN IS NOT USED AT NIGHT BUT A CPAP IS. WILL MONITOR STATUS WHILE SLEEPING. NO OTHER ISSUES AT THIS TIME, WCTM.
--- NOTE | 2016-08-25 19:59 | NUR ---
Pt is asking for cigarettes. Educated on AMA and hospital policy.
--- NOTE | 2016-08-25 21:45 | NUR ---
PT AMBULATED TO [place]ARDEN WITH CULTURIST, NO CP OR ISSUES. DENIES CP AT THIS TIME. WCTM.
[2016-08-25 22:55] VITALS: BP 94/49
[2016-08-25 22:57] VITALS: BP 93/52
--- NOTE | 2016-08-26 02:02 | NUR ---
Patient was reminded not to have caffeinated drinks in lieu of this morning's procedure. Now comfortably asleep.
[2016-08-26 02:41] VITALS: BP 112/63
--- NOTE | 2016-08-26 06:29 | Progress Note ---
Subjective General Note Date: 08/26/2016 Admission Date: 08/20/16 Hospital Day: 61 PCP: None Status: ACU observation. Advanced Directive: full code Room: 212 Brief admission history and progress 50-year-old white female with a history of hyperlipidemia, bipolar, presented to the [facility] emergency department with right anterior chest pain with radiation to the upper back and to the right arm. Also complaining of tingling in the right arm and hand. Patient reported the severity of pain at 7 out of 10 on onset. When reaching the emergency department. Patient reported it as a 3 out of 10. No modifying factor noted. Patient states the onset of pain was (6:[address] to work. Patient stated that the onset was abrupt and was progressive during activity. Patient also had reports of nausea and feeling of warmth. Patient also reported a shortness of breath during the episode of chest pain. At the time patient was seen in the ED, patient's EKG was normal sinus rhythm but bradycardic. Patient had a 3 out of 10 pain. Patient was started on nitroglycerin plus aspirin. Of note, patient was seen. Multiple risk factors for heart disease. Patient had a previous stress test 6 years prior Overnight patient had no elevation of her troponin. Chest pain resolved. Patient had no concerns during her sleep. Implementation of nuclear stress test today. Subjective She has no complaints. Patient denies chest pain, shortness of breath, wheeze. Patient with some mild anxiety. Overall feeling good. Constitutional Denies: Sweats, Weakness. ENT Denies: Mouth Swelling. Respiratory Denies: Dry, SOB w/exertion. Cardiovascular Denies: Palpitations. Gastrointestinal Denies: Abdominal Pain. Musculoskeletal Denies: Arm Pain. Physical Exam Vital Signs / I&Os Vital Signs Date Time Temp Pulse Resp B/P Pulse O2 O2 Flow FiO2 Ox Delivery Rate 08/26 0241 98.2 53 14 112/63 98 Room Air 08/26 0213 Room Air 08/25 2257 93/52 08/25 2255 98.1 53 14 94/49 98 Room Air 08/25 1821 98.4 65 16 105/53 96 Room Air 08/25 1450 Room Air 0.0 08/25 1435 98.2 64 18 111/60 98 Room Air I&O 08/25 0800 08/25 1600 08/26 0000 Intake Total 1163 Output Total 400 450 Balance -400 713 General Appearance Oriented X3, Cooperative HEENT EOMI Lungs Clear to auscultation Cardiovascular Normal S1 and S2, bradycardic Extremities Normal pulses, No tenderness Neurological Normal speech, Normal tone LAB Results Laboratory Tests 08/25 08/25 08/25 0957 0957 1025 Chemistry Plasma Sodium (136 - 145 mmol/L) 132 Plasma Potassium (3.5 - 5.1 mmol/L) 4.0 Plasma Chloride (98 - 107 mmol/L) 101 CO2 (Enzymatic) (21 - 32 mmol/L) 31 BUN (7 - 18 mg/dL) 14 Creatinine (0.6 - 1.3 mg/dL) 0.6 Est GFR ( Amer) (mL/min) >60 Est GFR (Non-Af Amer) (mL/min) >60 Glucose (70 - 110 mg/dL) 95 Plasma Calcium (8.5 - 10.1 mg/dL) 8.1 Total Bilirubin (0.0 - 1.0 mg/dL) 0.2 AST (15 - 37 U/L) 18 ALT (12 - 78 U/L) 17 Alkaline Phosphatase (46 - 116 U/L) 67 Creatine Kinase (24 - 260 U/L) 81 Troponin (0.00 - 1.5 ng/mL) <0.05 B-Natriuretic Peptide (5 - 100 pg/ml) 44.3 Total Protein (6.4 - 8.2 g/dL) 5.9 Albumin (3.3 - 5.0 g/dL) 3.3 Amylase (25 - 115 U/L) 73 Lipase (73 - 393 U/L) 92 Coagulation INR (0.8 - 1.2) 0.9 APTT (24 - 34 SECONDS) 28 D-Dimer, Quantitative (0.27 - 0.52 ug/mLFEU) 0.27 Hematology WBC (4.5 - 11.5 K/uL) 7.7 RBC (4.00 - 5.20 M/uL) 3.92 Hgb (12.0 - 16.0 gm/dL) 12.0 Hct (36.0 - 46.0 %) 35.9 MCV (80 - 100 fL) 92 MCH (26 - 34 pg) 31 RDW (11.6 - 14.8 %) 14.4 Neut % (Auto) (50 - 75 %) 54.4 Lymph % (Auto) (25 - 40 %) 33.4 [place] % (Auto) (3 - 14 %) 7.2 Eos % (Auto) (0 - 4 %) 4.6 Baso % (Auto) (0 - 2 %) 0.4 Plt Count, EDTA (150 - 400 K/uL) 232 PUBS MCHC (31 - 37 g/dL) 33 Toxicology Urine Opiates Screen (NEGATIVE) NEGATIVE Urine Methadone Screen (NEGATIVE) NEGATIVE Ur Barbiturates Screen (NEGATIVE) NEGATIVE U Amphetamin/Meth Scrn (NEGATIVE) NEGATIVE MDMA (Ecstasy) Screen (NEGATIVE) NEGATIVE U Benzodiazepines Scrn (NEGATIVE) NEGATIVE Urine Cocaine Screen (NEGATIVE) NEGATIVE U Cannabinoids Screen (NEGATIVE) POSITIVE Urines Urine Color YELLOW Urine Appearance CLEAR Urine pH (5.0 - 8.0) 7.0 Ur Specific [place] (1.010 - 1.030) 1.010 Urine Protein (NEGATIVE) NEGATIVE Urine Ketones (NEGATIVE) NEGATIVE Urine Blood (NEGATIVE) TRACE-INTACT Urine Nitrite (NEGATIVE) NEGATIVE Urine Bilirubin (NEGATIVE) NEGATIVE Urine Urobilinogen (0.2 - 1.0 EU/dL) 0.2 Ur Leukocyte Esterase (NEGATIVE) NEGATIVE Urine RBC (0 - 1 rbc/hpf) 0-1 Urine WBC (0 - 1 wbc/hpf) NONE SEEN Ur Epithelial Cells (0 - 5 EPI/hpf) 0-1 Urine Bacteria (NONE SEEN) NONE SEEN Urine Glucose (NEGATIVE) NEGATIVE Urine Comment CULT NOT INDICATED 08/25 08/25 08/25 08/25 08/26 1025 1057 1905 2109 0509 Chemistry Creatine Kinase (24 - 260 U/L) 74 Cancelled Cancelled Troponin (0.00 - 1.5 ng/mL) <0.05 Cancelled Cancelled Toxicology Valproic Acid (50.0 - 150.0 ug/mL) 68.5 Urines Urine Test NEGATIVE 08/26 08/26 0510 0510 Chemistry Plasma Sodium (136 - 145 mmol/L) 140 Plasma Potassium (3.5 - 5.1 mmol/L) 4.2 Plasma Chloride (98 - 107 mmol/L) 104 CO2 (Enzymatic) (21 - 32 mmol/L) 32 BUN (7 - 18 mg/dL) 12 Creatinine (0.6 - 1.3 mg/dL) 0.6 Est GFR ( Amer) (mL/min) >60 Est GFR (Non-Af Amer) (mL/min) >60 Glucose (70 - 110 mg/dL) 89 Plasma Calcium (8.5 - 10.1 mg/dL) 8.0 Plasma Magnesium (1.8 - 2.4 mg/dL) 1.7 Total Bilirubin (0.0 - 1.0 mg/dL) 0.2 AST (15 - 37 U/L) 15 ALT (12 - 78 U/L) 14 Alkaline Phosphatase (46 - 116 U/L) 43 Creatine Kinase (24 - 260 U/L) 59 Troponin (0.00 - 1.5 ng/mL) 0.01 Total Protein (6.4 - 8.2 g/dL) 5.0 Albumin (3.3 - 5.0 g/dL) 2.9 Triglycerides (30 - 200 mg/dL) 19 Cholesterol (140 - 200 mg/dL) 134 LDL Cholesterol, Calc (mg/dL) 60 HDL Cholesterol (32 - 96 mg/dL) 71 LDL/HDL Ratio 0.8 Cholesterol/HDL Ratio 1.9 Coronary Risk Interp (0.4 - 1.0) Pending TSH 3rd Generation (0.34 - 3.74 uIU/mL) 1.284 Hematology WBC (4.5 - 11.5 K/uL) 6.8 RBC (4.00 - 5.20 M/uL) 3.65 Hgb (12.0 - 16.0 gm/dL) 11.0 Hct (36.0 - 46.0 %) 33.6 MCV (80 - 100 fL) 92 MCH (26 - 34 pg) 30 RDW (11.6 - 14.8 %) 14.4 Neut % (Auto) (50 - 75 %) 29.8 Lymph % (Auto) (25 - 40 %) 58.8 [place] % (Auto) (3 - 14 %) 6.8 Eos % (Auto) (0 - 4 %) 4.0 Baso % (Auto) (0 - 2 %) 0.6 Plt Count, EDTA (150 - 400 K/uL) 197 PUBS MCHC (31 - 37 g/dL) 33 Assessment and Plan Problem List 1. Chest pain Plan Patient with chest pain on admission. Chest pain is resolved. Patient on a ACS rule in/out protocol. Patient's troponins and EKG show no significant change. Patient is not symptomatic. Patient waiting for cardiac stress test today. 2. Chest pain, rule out acute myocardial infarction Plan Cardiac stress test today No caffeinated beverages. No beta blockers 3. HLD (hyperlipidemia) Plan Following lipid panel this morning. Total cholesterol 134, LDL 60, HDL 71. Triglycerides at 19. TSH 1.284 inches. Normal Lipase at 94, normal 4. FH: heart disease Plan Patient with a family history of heart disease. She reported that her mother passed from heart disease and early mid 40s. Current status: Fair. Anticipated discharge date: 12-24 hours Anticipated discharge placement: long-term care facility Patient care time: Time spent in chart review, patient interview, physical exam, CPOE, and care documentation: 20-30 minutes Visit to patient today: 1 Complexity of care: mild
[2016-08-26 07:03] VITALS: BP 101/54
--- NOTE | 2016-08-26 08:30 | NUR ---
RECEIVED PT IN BED, ON HIGH FOLWER'S POSITION, AWAKE, ALERT, ORIENTED, COHERENT, COOPERATIVE. V/S TAKEN AND RECORDED. ASSESSMENT DONE. PT DENIES CHEST PAIN/PRESSURE AT THIS TIME. TOLERATING HER MEALS GOOD. DENIES N/V AT THIS TIME. DUE MEDS GIVEN. PLAN OF CARE INFORMED PT. FOR CARDIOLYTE STRESS TEST TODAY. NEEDS ATTENDED.
[2016-08-26] MEDS ORDERED: CLONAZEPAM0.5 MG PO (09:47)
[2016-08-26] MEDS ORDERED: PERCOCET1 TA1 PO (09:47)
[2016-08-26] MEDS ORDERED: LEXAPRO20 MG PO (09:47)
[2016-08-26] MEDS ORDERED: DEPAKOTE ER500 MG PO (09:47)
[2016-08-26] MEDS ORDERED: TRAMADOL HCL50 MG PO (09:48)
[2016-08-26 10:47] VITALS: BP 121/58
--- NOTE | 2016-08-26 12:49 | Provider's Discharge Care Plan ---
Problem, Goal, Plan Problem List 1. Chest pain Goals: Improve disease control, Screening, Therapeutic intervention Instructions: Follow up as directed, Stop smoking 2. Chest pain, rule out acute myocardial infarction Goals: Improve disease control, Screening Instructions: Follow up as directed, Stop smoking 3. HLD (hyperlipidemia) Goals: Screening Instructions: Increase activity level 4. FH: heart disease Goals: Improve nutrition status, Screening, Therapeutic intervention Instructions: Follow up as directed, Stop smoking
--- NOTE | 2016-08-26 13:00 | Discharge Summary ---
Discharge Summary Report Admit Date 08/25/16 Discharge Date 08/26/16 Admission Diagnosis 1. Chest pain. 2. Chest pain, rule out myocardial infarction, 3. hyperlipidemia 4. Family history of heart disease 5. Long Smoking history Discharge Diagnosis 1. Chest pain. 2. Chest pain, rule out myocardial infarction, 3. hyperlipidemia 4. Family history of heart disease 5. Long Smoking history Brief History See the history and physical dated 08/25/2016. Hospital Course 50-year-old white female with a history of hyperlipidemia, bipolar, presented to the [facility] emergency department with right anterior chest pain with radiation to the upper back and to the right arm. Also complaining of tingling in the right arm and hand. Patient reported the severity of pain at 7 out of 10 on onset. When reaching the emergency department. Patient reported it as a 3 out of 10. No modifying factor noted. Patient states the onset of pain was (6:[address] to work. Patient stated that the onset was abrupt and was progressive during activity. Patient also had reports of nausea and feeling of warmth. Patient also reported a shortness of breath during the episode of chest pain. Patient reports to the [facility] later that morning. By the time she reached the ED, she was admitted a pain level. 3/10. Patient was seen with an EKG with normal sinus rhythm. Found with bradycardia with heart rate of 50. Initial labs were negative: troponin or CK. the patient had an unremarkable hospital stay. Patient no further chest pain from what she experienced in the ER. All troponins and cardiac enzymes were negative. EKGs were without change. Patient had a cardiac stress test on hospital day 2. The patient experienced chest pain during the chemical portion of the stress test. there were no bleed changes and no arrhythmias. Patient had nuclear test follow-up to follow. This was read by cardiology. Patient was cleared for discharge [facility] recommendations to follow up with her primary care provider. General Appearance Oriented X3, Cooperative Lungs Normal air movement Cardiovascular Normal S1, Normal S2 Skin No Breakdown Psych/Mental Status Mood NL Lab/Imaging Laboratory Tests 08/25 08/25 08/26 08/26 08/26 1905 2109 0509 0510 0510 Chemistry Plasma Sodium (136 - 145 mmol/L) 140 Plasma Potassium (3.5 - 5.1 mmol/L) 4.2 Plasma Chloride (98 - 107 mmol/L) 104 CO2 (Enzymatic) (21 - 32 mmol/L) 32 BUN (7 - 18 mg/dL) 12 Creatinine (0.6 - 1.3 mg/dL) 0.6 Est GFR ( Amer) (mL/min) >60 Est GFR (Non-Af Amer) (mL/min) >60 Glucose (70 - 110 mg/dL) 89 Plasma Calcium (8.5 - 10.1 mg/dL) 8.0 Plasma Magnesium (1.8 - 2.4 mg/dL) 1.7 Total Bilirubin (0.0 - 1.0 mg/dL) 0.2 AST (15 - 37 U/L) 15 ALT (12 - 78 U/L) 14 Alkaline Phosphatase (46 - 116 U/L) 43 Creatine Kinase (24 - 260 U/L) 74 Cancelled Cancelled 59 Troponin (0.00 - 1.5 ng/mL) <0.05 Cancelled Cancelled 0.01 Total Protein (6.4 - 8.2 g/dL) 5.0 Albumin (3.3 - 5.0 g/dL) 2.9 Triglycerides (30 - 200 mg/dL) 19 Cholesterol (140 - 200 mg/dL) 134 LDL Cholesterol, Calc (mg/dL) 60 HDL Cholesterol (32 - 96 mg/dL) 71 LDL/HDL Ratio 0.8 Cholesterol/HDL Ratio 1.9 Coronary Risk Interp (0.4 - 1.0) 0.4 TSH 3rd Generation (0.34 - 3.74 uIU/mL) 1.284 Hematology WBC (4.5 - 11.5 K/uL) 6.8 RBC (4.00 - 5.20 M/uL) 3.65 Hgb (12.0 - 16.0 gm/dL) 11.0 Hct (36.0 - 46.0 %) 33.6 MCV (80 - 100 fL) 92 MCH (26 - 34 pg) 30 RDW (11.6 - 14.8 %) 14.4 Neut % (Auto) (50 - 75 %) 29.8 Lymph % (Auto) (25 - 40 %) 58.8 [place] % (Auto) (3 - 14 %) 6.8 Eos % (Auto) (0 - 4 %) 4.0 Baso % (Auto) (0 - 2 %) 0.6 Plt Count, EDTA (150 - 400 K/uL) 197 PUBS MCHC (31 - 37 g/dL) 33 Cardiac stress test. Discharge Instructions/Meds Patient is instructed to follow-up with primary care provider. Cardiology will inform the provider once information is available. Recommendations are for you to follow up with your primary care provider. Attempt smoking cessation. Maintain adequate cardiac conducive diet. Review the stress test with cardiology. Home medications include 1. Depakote 1500 mg by mouth at bedtime. 2. Lexapro 20 mg daily. 3. Klonopin 1/2 mg daily at noon. 4. Percocet 5/325 mg by mouth 3 times a day. 5. Tramadol 50-100 mg twice per day. For other recommendations regarding discharge diet, activity, followup, and discharge medications please see the patient's discharge instructions. Discharge condition: Good Greater than 30 min. was spent in the patient's discharge preparation including discharge interview and physical examination, progress note, discharge instructions, and discharge summary The patient was interviewed and examined on the day of discharge.
[2016-08-26 13:15] VITALS: BP 138/74
--- NOTE | 2016-08-26 13:20 | NUR ---
PT DENIES CHEST PAIN AT THIS TIME. ASSISTED BY MS SMITH TO RT FOR CARDIOLYTE STRESS TEST VIA WHEELCHAIR.
--- NOTE | 2016-08-26 15:28 | NUR ---
Pharmacist attempted to discuss medication list with patient. Patient is away at stress test. Will try again later date.
--- NOTE | 2016-08-26 17:45 | NUR ---
QUESTIONS AND CONCERNS ANSWERED. NO NEW MEDS. PT EDUCATION COMPLETE. IV DC'D INTACT. FOLLOW DISCUSSED. PT DC'D AT 1750, AMBULATING IND W/ [employer]OCIATE [employer] OF MEDICINE AND FAMILY AT SIDE.
--- NOTE | 2016-08-30 13:37 | DIAGNOSTIC IMAGING REPORT ---
REFERRING PHYSICIAN/PROVIDER: Roman Garcia MD ATTENDING PHYSICIAN/PROVIDER: Roman Garcia MD CONSULTING ELECTRONIC WIRER: Jak Rodriguez MD PROCEDURE PERFORMED: Nuclear stress test INDICATION: rule out; atypical chest pain RADIOPHARMACEUTICAL: The patient received 10.0 mCi of technetium 99 sestamibi at rest and 29.0 mCi of technetium 99 sestamibi at peak pharmacological stress. This is a 1-day stress protocol. CARDIAC STRESS: The patient was stressed according to the Lexiscan Cardiolite protocol. The resting heart rate was 55 beats per minute and the heart rate of test end was 66 beats per minute. The patient's baseline blood pressure was 119/ 68 mmHg. The patient has underlying EKG shows sinus bradycardia. The patient did have some chest discomfort during Lexiscan infusion. There are no significant arrhythmias nor were there any ST changes consistent with ischemia. RAW DATA: There is appropriate radiotracer uptake of the LV myocardium. Motion correction software was applied. QUANTITATIVE GATED SPECT: There is normal LV wall motion. The ejection fraction during stress was 53% which is within normal limits. The left ventricular end-diastolic volume during resting was 114 mmHg. The calculated t.i.d. was 1.03 which is within normal limits. MYOCARDIAL PERFUSION STUDY: There is no evidence of fixed or reversible perfusion defects. IMPRESSION: 1. This is a normal myocardial perfusion study. 2. The LV ejection fraction is normal and there is no evidence of LV wall motion abnormalities. 3. The pharmacological stress EKG is nondiagnostic.
== END 2016-08-26 17:50 | disposition home or self-care (01) ==
LOC: ED SRH 09:45 → TRANS SRH 12:12 → ACUTE2 SRH 12:12
PROVIDERS: ADMIT Emergency Medicine
PROC: 3E073KZ Introduction of Other Diagnostic Substance into Coronary Artery, Percutaneous Approach (ICD-10-PCS; principal; 2016-08-26)
PROC: 4A02XM4 Measurement of Cardiac Total Activity, External Approach (ICD-10-PCS; principal; 2016-08-26)
DX: R07.9 Chest pain, unspecified (principal); R06.02 Shortness of breath; R11.0 Nausea; E78.5 Hyperlipidemia, unspecified; F31.9 Bipolar disorder, unspecified; Z82.49 Family history of ischemic heart disease and other diseases of the circulatory system
CPT/HCPCS: 29230; 29244; 29251; 29253; 90004; 90074; 90100; 90616; 91285; 91320; 91556; 92235; 92530; 92610; 92690; 92720; 92760; 92761; 92762; 92763; 92764; 92765; 92766; 92767; 93070; 93140; 94001; 94060; 95059